=== PATIENT | female | born 1940 | race Caucasian/White ===

== ENCOUNTER 2025-01-13 05:45 | Inpatient (IN) | payer MEDICARE, OTHER, SELFPAY ==
--- NOTE | 2024-12-26 13:41 | CM ---
CM reviewed medical records. CM spoke with patient. Patient stated that she lives alone, but has a caregiver/friend who is able to assist patient with planning and care. Patient further stated that he sister will be staying with her post operatively
for assistance. Patient confirmed her has her DME equipment ordered and plans to pick it up from [facility].
Patient is active with her PCP and has medication coverage.
Patient has decided on [facility] and she has her appointment set up for 01/15.
CM will remain available as needed.
PLAN: home with family support and outpatient PT.
[2024-12-30 14:01] VITALS: BMI 29.9
[2024-12-30 14:14] LABS: Hematocrit 37.9 % (37.0-47.0); Hemoglobin 12.3 g/dL (12.0-16.0); Mean Corp Hgb Conc. 32.5 g/dL (33.0-37.0); Mean Corpuscular Volume 83.3 fL (81.0-99.0); Platelet Count 144 10^3/uL (130-400); Red Cell Dist. Width 14.7 % (11.5-14.5)
[2024-12-30 14:43] LABS: ALT (SGPT) 27 U/L (0-35); AST (SGOT) 29 U/L (14-36); Albumin 4.4 g/dl (3.5-5.0); Alkaline Phosphatase 113 U/L (38-126); Blood Urea Nitrogen 28 mg/dl (7-17); Calcium 10.4 mg/dl (8.4-10.2); Carbon Dioxide 34 mmol/L (22-30); Chloride 99 mmol/L (98-107); Estimated Creatinine Clearance 68 ml/min; Glucose 158 mg/dl (70-99); Potassium 5.1 mmol/L (3.5-5.1); Sodium 140 mmol/L (135-145); Total Protein 7.5 g/dl (6.3-8.2); eGFR > 60.00
[2024-12-30 15:58] VITALS: BMI 29.9
[2024-12-31 09:35] LABS: Glycohemoglobin (HgbA1c) 7.7 % (4.0-5.6)
[2025-01-13] VITALS (12 sets, daily range): BP systolic 101–124; BP diastolic 46–65; PULSE 80; O2SAT 93; BMI 29.9
[2025-01-13 06:29] LABS: Glucose - Point of Care 133 mg/dl (70-99)
[2025-01-13] MEDS: NORMOSOL-R/PLASMALYTE-A 1000 IV ×2 (06:42→10:59)
[2025-01-13] MEDS: TYLENOL 650 MG PO ×4 (06:43→20:33)
[2025-01-13] MEDS: CELEBREX 200 MG PO (06:43)
[2025-01-13 09:33] LABS: Glucose - Point of Care 130 mg/dl (70-99)
[2025-01-13] MEDS: ROXICODONE 5 MG PO (10:02)
[2025-01-13] MEDS: PROTONIX 40 MG PO (10:58)
[2025-01-13] MEDS: VITAMIN D3 (cholecalciferol) 50 MCG PO (10:58)
[2025-01-13] MEDS: CRESTOR 20 MG PO (10:58)
[2025-01-13] MEDS: ZOLOFT 200 MG PO (10:58)
[2025-01-13] MEDS: JANUVIA 100 MG PO (10:59)
[2025-01-13] MEDS: VITAMIN B-12 1000 MCG PO (10:59)
[2025-01-13] MEDS: ORETIC 12.5 MG PO (10:59)
[2025-01-13] MEDS: BUSPAR 5 MG PO ×2 (10:59→20:33)
[2025-01-13] MEDS: NOVOLOG FLEXPEN-MODERATE RESISTANCE SC (11:18)
--- NOTE | 2025-01-13 11:30 | W.PN.ORTHO ---
Today's Communication / Plan
-
D/c when clinically stable.
Assessment
.
Distal Motor Intact: Yes
Dressing:
Scant incisional bleeding noted. TXA ordered for later today.
Assessment:
R hip OA s/p Raisa alvarez/ Dr Chicas 01/13/25
- s/p remote L TKA and remote parital R TKA at an outside facility
DVT prophylaxis - ASA, b/l venous foot pumps
HTN - + parameters - monitor BP
PACs, asymptomatic - monitor on tele
Moderate aortic stenosis, asymptomatic - reduce hourly IVF rate to avoid fluid overload
JO, compliant with CPAP - monitor O2
- IS
- Continue CPAP HS
NIDDM, A1c 7.7 - monitor BS
- Diabetic carb controlled diet
- Resume home meds
- Add SSI AC, low dose Lantus HS during admission to accommodate for potential BS elevations d/t surgical stress, IV steroids in OR
- Would benefit from Cefadroxil upon d/c
GERD and Hiatal hernia - continue PPI therapy
Mild cognitive disorder - minimize opioids as able. Reportedly tolerated Oxy well previously
HLD
Mild aortic and mild regurgitation.
Diverticulitis, last episode approximately 5 years ago
Nephrolithiasis
Questionable TIA history
Multilevel degenerative disc disease with stenosis
Skin cancer, status post Mohs
Depression
Osteoporosis
Mild hypercalcemia
Plan
.
Surgery / Date: Raisa alvarez/ Dr Chicas 01/13/25
DVT Prophylaxis: Aspirin
Activity:
Out of bed.
PT/OT
Discharge Plan: Home w/ Outpatient PT
Subjective
.
.:
Patient resting comfortably in bed.
No current right hip pain reported.
Denies any new significant complaints.
Vital Signs and Labs
.
Vital Signs and Labs:
Lab Results
12/30/24 12:21
12/30/24 12:21
Temp Pulse Resp BP Pulse Ox
97.9 F 75 16 101/56 93
01/13/25 10:27 01/13/25 10:27 01/13/25 10:27 01/13/25 10:27 01/13/25 10:27
Physical Exam
-
HEENT: No pallor, cyanosis, or jaundice. Throat clear.
NECK: Supple. No JVD.
RESPIRATORY: Lungs clear to auscultation.
CVS: S1, S2 normal. RRR.�Murmur noted.
ABDOMEN: Soft, non-tender. No distension.
EXTREMITIES: Strength equal, no calf pain with palpation/dorsiflexion. Calves soft.
GRADUATE FELLOW: AOx3. No focal deficits. platform architect grossly intact
[2025-01-13] MEDS: ANCEF 5 IV ×2 (13:29→22:11)
[2025-01-13 17:00] LABS: Glucose - Point of Care 200 mg/dl (70-99)
[2025-01-13] MEDS: NOVOLOG FLEXPEN-MODERATE RESISTANCE 3 UNITS SC (17:10)
[2025-01-13] MEDS: GLUCOPHAGE 1000 MG PO (17:11)
[2025-01-13] MEDS: ASPIRIN 325 MG PO (17:11)
[2025-01-13] MEDS: SENOKOT 17.2 MG PO (20:33)
[2025-01-13] MEDS: COLACE 100 MG PO (20:33)
[2025-01-13] MEDS: CYKLOKAPRON 650 MG PO (20:33)
[2025-01-13] MEDS: TORADOL 10 MG IV (20:33)
[2025-01-13] MEDS: UROCIT-K 10 MEQ PO (20:33)
[2025-01-13] MEDS: BACTROBAN 2% OINTMENT 1 APPLIC NASAL (20:33)
[2025-01-13 20:50] LABS: Glucose - Point of Care 120 mg/dl (70-99)
[2025-01-13] MEDS: LANTUS 0.05 UNITS SC (22:12)
[2025-01-13] MEDS: NEURONTIN 200 MG PO (22:12)
[2025-01-13] MEDS: ROXICODONE 10 MG PO (22:25)
[2025-01-14] VITALS (7 sets, daily range): BP systolic 88–119; BP diastolic 44–61; PULSE 82–89; O2SAT 95
[2025-01-14] MEDS: TYLENOL PO ×2 (00:16→05:51)
--- NOTE | 2025-01-14 00:43 | PTCARENOTE ---
Pt reluctant to take narcotic for pain. Rates R hip/groin pain at 7/10. Educated on importance of pain control for mobility. Verbalizes little to no relief after receiving roxicodone 10 mg PO (refer to MAR). Assisted w/repostioning and ice pack
placed. Requires reminders to maintain hip precautions. Pt appears to be resting comfortably, with eyes closed, CPAP on and even respirations.
[2025-01-14 07:36] LABS: Glucose - Point of Care 147 mg/dl (70-99)
[2025-01-14] MEDS: NOVOLOG FLEXPEN-MODERATE RESISTANCE SC ×2 (07:53→11:50)
[2025-01-14] MEDS: UROCIT-K 10 MEQ PO ×2 (07:57→20:30)
[2025-01-14] MEDS: JANUVIA 100 MG PO (07:57)
[2025-01-14] MEDS: CYKLOKAPRON 650 MG PO ×2 (07:57→20:10)
[2025-01-14] MEDS: SENOKOT 17.2 MG PO ×2 (07:57→20:10)
[2025-01-14] MEDS: BUSPAR 5 MG PO ×2 (07:57→20:30)
[2025-01-14] MEDS: PROTONIX 40 MG PO (07:57)
[2025-01-14] MEDS: CELEBREX 200 MG PO (07:57)
[2025-01-14] MEDS: ASPIRIN 325 MG PO (07:58)
[2025-01-14] MEDS: COLACE 100 MG PO ×2 (07:58→20:10)
[2025-01-14] MEDS: CRESTOR 20 MG PO (07:58)
[2025-01-14] MEDS: ZOLOFT 200 MG PO (07:58)
[2025-01-14] MEDS: TYLENOL 650 MG PO ×4 (07:59→20:10)
[2025-01-14] MEDS: GLUCOPHAGE 1000 MG PO ×2 (07:59→17:27)
[2025-01-14] MEDS: ORETIC PO (07:59)
[2025-01-14] MEDS: VITAMIN B-12 1000 MCG PO (08:00)
[2025-01-14] MEDS: ROXICODONE 5 MG PO ×3 (08:00→21:53)
[2025-01-14] MEDS: BACTROBAN 2% OINTMENT 1 APPLIC NASAL ×2 (08:00→20:10)
[2025-01-14] MEDS: VITAMIN D3 (cholecalciferol) 50 MCG PO (08:00)
[2025-01-14] MEDS: LIDOCAINE 4% PATCH 2 PATCH TOPICAL (08:03)
--- NOTE | 2025-01-14 08:47 | W.PN.ORTHO ---
Today's Communication / Plan
-
Medically doing well.
Given functional limitations, make require SNF upon d/c.
Assessment
.
Distal Motor Intact: Yes
Dressing:
Quarter-sized area of old incisional bleeding towards inferior end of dressing.
Assessment:
R hip OA s/p R YOJANA w/ Dr Chicas 01/13/25
- s/p remote L TKA and remote parital R TKA at an outside facility
DVT prophylaxis - ASA, b/l venous foot pumps
Post-surgical pain - likely muscular as patient points to pain in right thigh - will add Lidocaine patches
- Consider muscle relaxant
- Continue Oxy q6hprn, Tylenol ATC, Celebrex, Gabapentin HS
- Did ute patient on importance of staying ahead of pain w/ Oxycodone. Pt reportedly hesitant overnight taking
HTN - + parameters - BPs soft but overall stable per POA's reports
PACs, asymptomatic - maintaining NSR on tele
Moderate aortic stenosis, asymptomatic - reduced hourly IVF rate to avoid fluid overload
- No sx of fluid overload POD 1
JO, compliant with CPAP - O2 stable on RA
- IS
- Continue CPAP HS
NIDDM, A1c 7.7 - BS readings initially elevated but improved w/ measures below
- Diabetic carb controlled diet
- Resumed home meds
- Added SSI AC, low dose Lantus HS during admission to accommodate for potential BS elevations d/t surgical stress, IV steroids in OR
- Would benefit from Cefadroxil upon d/c
GERD and Hiatal hernia - continue PPI therapy
Mild cognitive disorder - minimize opioids as able. Tolerating Oxycodone
HLD
Mild aortic and mild regurgitation
Diverticulitis, last episode approximately 5 years ago
Nephrolithiasis
Questionable TIA history
Multilevel degenerative disc disease with stenosis
Skin cancer, status post Mohs
Depression
Osteoporosis
Mild hypercalcemia
Plan
.
Surgery / Date: Raisa alvarez/ Dr Chicas 01/13/25
DVT Prophylaxis: Aspirin
Activity:
Out of bed.
PT/OT
Discharge Plan: SNF (home PT/OT and VN vs )
Subjective
.
.:
Patient examined resting in bed. Sister and POA present.
Complaints of R hip/thigh pain overnight, likely 2* lapse in Oxycodone dosing.
Denies any other new significant complaints.
Eager for potential d/c today.
Vital Signs and Labs
.
Vital Signs and Labs:
Lab Results
12/30/24 12:21
12/30/24 12:21
Temp Pulse Resp BP Pulse Ox
98 F 82 16 110/60 98
01/14/25 07:35 01/14/25 07:35 01/14/25 07:35 01/14/25 07:35 01/14/25 07:35
Non-invasive Hgb result: 11.0
Physical Exam
-
HEENT: No pallor, cyanosis, or jaundice. Throat clear.
NECK: Supple. No JVD.
RESPIRATORY: Lungs clear to auscultation.
CVS: S1, S2 normal. RRR.�+ Murmur.
ABDOMEN: Soft, non-tender. No distension.
EXTREMITIES: Strength equal, no calf pain with palpation/dorsiflexion. Calves soft.
SPANISH MOSS PICKER: AOx3. Mild cognitive deficits at baseline. child care assistant grossly intact
--- NOTE | 2025-01-14 08:59 | W.DS.TRANS ---
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
-
Discharge Instructions:
Discharge Diagnosis/Procedures R hip OA s/p R YOJANA w/ Dr Chicas 01/13/25
Diet Diabetic, Carb Controlled
Additional Diets Adequate hydration, minimize opioids, and wear
TEDs stockings to prevent low blood pressure/
dizziness.
Activity As tolerated,With Walker
Driving Restrictions Not until seen by your Dr
Bathing Restrictions OK to Shower
Other Services OT,PT
Wound Care Dressing to be removed 1 week post-surgery.
Dean to be removed at 2 week follow-up with
surgeon's office.
Instructions:
Stand-Alone Forms: Total Hip/Knee Replacement D/C
Changes to Home Medications: Yes
Discharge Medications:
DC Medications w/original date entered in [facility]
buspirone 5 mg tablet 5 mg PO BID Mental Health/Anxiety 12/27/24
cholecalciferol (vitamin D3) 50 mcg (2,000 unit) capsule (Vitamin D3) 50 mcg PO DAILY Supplement 12/27/24
coQ10 (ubiquinol) 200 mg capsule 400 mg PO DAILY Supplement 12/27/24
Held on 01/13/25. Instructions: Resume on 01/20/25.
mecobalamin (vitamin B12) 1,000 mcg chewable tablet 1,000 mcg PO DAILY Supplement 12/27/24
metformin 1,000 mg tablet 1,000 mg PO BID Diabetes 12/27/24
multivitamin 1 tab PO DAILY Supplement 12/27/24
omeprazole 20 mg capsule,delayed release 20 mg PO DAILY Gastrointestinal Issue 12/27/24
potassium citrate 10 mEq (1,080 mg) tablet,extended release 10 meq PO BID Supplement 12/27/24
rosuvastatin 20 mg tablet 20 mg PO DAILY High Cholesterol 12/27/24
sertraline 100 mg tablet 100 mg PO BID Mental Health/Anxiety 12/27/24
sitagliptin phosphate 100 mg tablet (Januvia) 100 mg PO DAILY Diabetes 12/27/24
zinc acetate 50 mg (zinc) capsule 50 mg PO DAILY Supplement 12/27/24
mupirocin 2 % topical ointment 1 applic intranasal BID #1 tube 12/30/24
Saccharomyces boulardii 250 mg capsule (Florastor) 250 mg PO BID #14 caps 01/13/25
acetaminophen 500 mg tablet 1,000 mg (2 x 500 mg) PO Q6H pain #60 tabs 01/13/25
aspirin 325 mg tablet 325 mg PO DAILY #30 tabs 01/13/25
cefadroxil 500 mg capsule 500 mg PO BID #14 caps 01/13/25
celecoxib 200 mg capsule 200 mg PO DAILY #14 caps 01/13/25
docusate sodium 100 mg capsule 100 mg PO BID #30 caps 01/13/25
hydrochlorothiazide 12.5 mg capsule 12.5 mg PO DAILY #1 cap 01/13/25
ondansetron HCl 4 mg tablet 4 mg PO Q6H PRN nausea and vomiting #30 tabs 01/13/25
oxycodone 5 mg tablet 5 - 10 mg (1 - 2 x 5 mg) PO Q6H PRN moderate-severe pain #30 tabs 01/13/25
sennosides 8.6 mg tablet (Adele-cristine) 17.2 mg (2 x 8.6 mg) PO BID #30 tabs 01/13/25
gabapentin 300 mg capsule 300 mg PO HS neuropathic pain/sleep #10 caps 01/14/25
lidocaine 4 % topical patch 2 patch topical DAILY #30 ea 01/14/25
Home Medication Changes
Saccharomyces boulardii 250 mg capsule (Florastor) 250 mg PO BID #14 caps 01/13/25
acetaminophen 500 mg tablet 1,000 mg (2 x 500 mg) PO Q6H pain #60 tabs 01/13/25
aspirin 325 mg tablet 325 mg PO DAILY #30 tabs 01/13/25
cefadroxil 500 mg capsule 500 mg PO BID #14 caps 01/13/25
celecoxib 200 mg capsule 200 mg PO DAILY #14 caps 01/13/25
docusate sodium 100 mg capsule 100 mg PO BID #30 caps 01/13/25
ondansetron HCl 4 mg tablet 4 mg PO Q6H PRN nausea and vomiting #30 tabs 01/13/25
oxycodone 5 mg tablet 5 - 10 mg (1 - 2 x 5 mg) PO Q6H PRN moderate-severe pain #30 tabs 01/13/25
sennosides 8.6 mg tablet (Adele-cristine) 17.2 mg (2 x 8.6 mg) PO BID #30 tabs 01/13/25
gabapentin 300 mg capsule 300 mg PO HS neuropathic pain/sleep #10 caps 01/14/25
lidocaine 4 % topical patch 2 patch topical DAILY #30 ea 01/14/25
Pending Results: No
[2025-01-14 11:49] LABS: Glucose - Point of Care 141 mg/dl (70-99)
--- NOTE | 2025-01-14 15:01 | CM ---
Addendum entered by Inge Campuzano RN 01/16/25 09:39:
Cm met with patient and friend in room. Patient remains agreeable to discharge to SNF.
PLAN: SNF.
Addendum entered by Inge Campuzano RN 01/15/25 09:52:
CM spoke with Babs at the [facility] [place]. She confirmed bed availablity for 01/16.
[facility] – [place]
REPORT
[phone]

CM confirmed that all beds are private as per patient's request.
Addendum entered by Inge Campuzano RN 01/15/25 09:18:
Family and patient are agreeable to the [facility] [place].
Original Note:
CM discuss placement with patient and family Patient is agreeable to SNF.
The [facility] [place] is able to accept patient. CM will confirm family's choice.
[2025-01-14 16:57] LABS: Glucose - Point of Care 185 mg/dl (70-99)
[2025-01-14] MEDS: NOVOLOG FLEXPEN-MODERATE RESISTANCE 1 UNITS SC (17:28)
[2025-01-14] MEDS: KEFLEX 500 MG PO (20:10)
[2025-01-14] MEDS: REMOVE LIDOCAINE PATCH 2 PATCH REMOVE (20:20)
[2025-01-14] MEDS: NEURONTIN 300 MG PO (21:35)
[2025-01-14] MEDS: LANTUS 0.05 UNITS SC (21:45)
[2025-01-14 21:47] LABS: Glucose - Point of Care 278 mg/dl (70-99)
[2025-01-15] VITALS (8 sets, daily range): BP systolic 97–110; BP diastolic 48–68; PULSE 88–91; O2SAT 97–98
[2025-01-15] MEDS: TYLENOL 650 MG PO ×7 (00:20→23:30)
[2025-01-15 07:50] LABS: Glucose - Point of Care 170 mg/dl (70-99)
[2025-01-15] MEDS: NOVOLOG FLEXPEN-MODERATE RESISTANCE 1 UNITS SC (08:01)
[2025-01-15] MEDS: KEFLEX 500 MG PO ×2 (08:01→20:50)
[2025-01-15] MEDS: VITAMIN B-12 1000 MCG PO (08:02)
[2025-01-15] MEDS: ASPIRIN 325 MG PO (08:02)
[2025-01-15] MEDS: JANUVIA 100 MG PO (08:02)
[2025-01-15] MEDS: ZOLOFT 200 MG PO (08:02)
[2025-01-15] MEDS: COLACE 100 MG PO ×2 (08:02→20:54)
[2025-01-15] MEDS: GLUCOPHAGE 1000 MG PO ×2 (08:02→17:03)
[2025-01-15] MEDS: VITAMIN D3 (cholecalciferol) 50 MCG PO (08:02)
[2025-01-15] MEDS: CELEBREX 200 MG PO (08:02)
[2025-01-15] MEDS: CRESTOR 20 MG PO (08:02)
[2025-01-15] MEDS: PROTONIX 40 MG PO (08:02)
[2025-01-15] MEDS: SENOKOT 17.2 MG PO ×2 (08:03→20:50)
[2025-01-15] MEDS: LIDOCAINE 4% PATCH 2 PATCH TOPICAL (08:03)
[2025-01-15] MEDS: ORETIC PO (08:03)
[2025-01-15] MEDS: BUSPAR 5 MG PO ×2 (08:04→20:55)
[2025-01-15] MEDS: UROCIT-K 10 MEQ PO ×2 (08:04→20:50)
--- NOTE | 2025-01-15 08:55 | W.PN.ORTHO ---
Today's Communication / Plan
-
Continue to monitor VS, BS readings.
D/c when clinically stable.
Assessment
.
Distal Motor Intact: Yes
Dressing:
Quarter-sized area of old incisional bleeding towards inferior end of dressing - unchanged since yesterday.
Assessment:
R hip OA s/p R YOJANA w/ Dr Chicas 01/13/25
- s/p remote L TKA and remote parital R TKA at an outside facility
DVT prophylaxis - ASA, b/l venous foot pumps
Post-surgical pain - likely muscular as patient pointed to pain in right thigh - did add Lidocaine patches
- Consider muscle relaxant
- Continue Oxy q6hprn, Tylenol ATC, Celebrex, Gabapentin HS
- Did [place] patient on importance of staying ahead of pain w/ Oxycodone. Pt reportedly hesitant taking throughout admission
- Pain better tolerated w/ measures above by POD 2
HTN - + parameters - BPs soft but overall stable per POA's reports
PACs, asymptomatic - rhythm stable on tele
Moderate aortic stenosis, asymptomatic - reduced hourly IVF rate to avoid fluid overload
- No sx of fluid overload post-op
JO, compliant with CPAP - O2 stable on RA
- IS
- Continue CPAP HS
NIDDM, A1c 7.7 - BS readings initially elevated but improving w/ measures below
- Diabetic carb controlled diet
- Resumed home meds
- Added SSI AC, low dose Lantus HS during admission to accommodate for potential BS elevations d/t surgical stress, IV steroids in OR
- Would benefit from Cefadroxil upon d/c
GERD and Hiatal hernia - continue PPI therapy
Mild cognitive disorder - minimize opioids as able. Tolerating Oxycodone
HLD
Mild aortic and mild regurgitation
Diverticulitis, last episode approximately 5 years ago
Nephrolithiasis
Questionable TIA history
Multilevel degenerative disc disease with stenosis
Skin cancer, status post Mohs
Depression
Osteoporosis
Mild hypercalcemia
Plan
.
Surgery / Date: R YOJANA w/ Dr Chicas 01/13/25
DVT Prophylaxis: Aspirin
Activity:
Out of bed.
PT/OT
Discharge Plan: SNF
Subjective
.
.:
Patient resting comfortably in bed.
R hip/thigh pain tolerable in comparison to yesterday.
Denies any acute complaints.
PT/OT recommending SNF d/t current functional status.
Vital Signs and Labs
.
Vital Signs and Labs:
Lab Results
12/30/24 12:21
12/30/24 12:21
Temp Pulse Resp BP Pulse Ox
98.2 F 90 16 110/53 97
01/15/25 07:40 01/15/25 07:40 01/15/25 07:40 01/15/25 07:40 01/15/25 07:40
Non-invasive Hgb result: 10.1
Physical Exam
-
HEENT: No pallor, cyanosis, or jaundice. Throat clear.
NECK: Supple. No JVD.
RESPIRATORY: Lungs clear to auscultation.
CVS: S1, S2 normal. RRR.�Murmur noted.
ABDOMEN: Soft, non-tender. No distension.
EXTREMITIES: Strength equal, no calf pain with palpation/dorsiflexion. Calves soft.
DISPENSING AND MEASURING OPTICIAN: AOx3. Mild cognitive deficits at baseline. painter airbrush grossly intact
[2025-01-15] MEDS: ROXICODONE 5 MG PO (09:15)
[2025-01-15 12:09] LABS: Glucose - Point of Care 139 mg/dl (70-99)
[2025-01-15] MEDS: NOVOLOG FLEXPEN-MODERATE RESISTANCE SC (12:58)
[2025-01-15 16:35] LABS: Glucose - Point of Care 240 mg/dl (70-99)
[2025-01-15] MEDS: NOVOLOG FLEXPEN-MODERATE RESISTANCE 3 UNITS SC (16:56)
[2025-01-15] MEDS: REMOVE LIDOCAINE PATCH 2 PATCH REMOVE (20:50)
[2025-01-15] MEDS: NEURONTIN 300 MG PO (21:04)
[2025-01-15 21:14] LABS: Glucose - Point of Care 161 mg/dl (70-99)
[2025-01-15] MEDS: LANTUS 0.05 UNITS SC (21:40)
[2025-01-16] MEDS: TYLENOL 650 MG PO ×3 (03:00→12:17)
[2025-01-16 03:46] VITALS: BP 131/54
[2025-01-16 07:40] VITALS: BP 114/56
[2025-01-16 08:14] LABS: Glucose - Point of Care 148 mg/dl (70-99)
[2025-01-16] MEDS: UROCIT-K 10 MEQ PO (09:14)
[2025-01-16] MEDS: BUSPAR 5 MG PO (09:15)
[2025-01-16] MEDS: CELEBREX 200 MG PO (09:15)
[2025-01-16] MEDS: VITAMIN D3 (cholecalciferol) 50 MCG PO (09:15)
[2025-01-16] MEDS: VITAMIN B-12 1000 MCG PO (09:15)
[2025-01-16] MEDS: JANUVIA 100 MG PO (09:15)
[2025-01-16] MEDS: KEFLEX 500 MG PO (09:15)
[2025-01-16] MEDS: PROTONIX 40 MG PO (09:15)
[2025-01-16] MEDS: ZOLOFT 200 MG PO (09:16)
[2025-01-16] MEDS: GLUCOPHAGE 1000 MG PO (09:16)
[2025-01-16] MEDS: CRESTOR 20 MG PO (09:16)
[2025-01-16] MEDS: ASPIRIN 325 MG PO (09:16)
[2025-01-16] MEDS: COLACE 100 MG PO (09:16)
--- NOTE | 2025-01-16 09:16 | W.PN.ORTHO ---
Today's Communication / Plan
-
D/c today since clinically stable, bed available at SNF.
Assessment
.
Distal Motor Intact: Yes
Dressing:
Quarter-sized area of old incisional bleeding towards inferior end of dressing - unchanged since yesterday.
Assessment:
R hip OA s/p R YOJANA w/ Dr Chicas 01/13/25
- s/p remote L TKA and remote parital R TKA at an outside facility
DVT prophylaxis - ASA, b/l venous foot pumps
Post-surgical pain - likely muscular as patient pointed to pain in right thigh - did add Lidocaine patches
- Consider muscle relaxant
- Continue Oxy q6hprn, Tylenol ATC, Celebrex, Gabapentin HS
- Did [place] patient on importance of staying ahead of pain w/ Oxycodone. Pt reportedly hesitant taking throughout admission
- Pain better tolerated w/ measures above by POD 2
HTN - + parameters - BPs soft but overall stable per POA's reports
PACs, asymptomatic - rhythm stable on tele
Moderate aortic stenosis, asymptomatic - reduced hourly IVF rate to avoid fluid overload
- No sx of fluid overload post-op
JO, compliant with CPAP - O2 stable on RA
- IS
- Continue CPAP HS
NIDDM, A1c 7.7 - BS readings initially elevated but improving w/ measures below
- Diabetic carb controlled diet
- Resumed home meds
- Added SSI AC, low dose Lantus HS during admission to accommodate for potential BS elevations d/t surgical stress, IV steroids in OR
- Would benefit from Cefadroxil upon d/c
GERD and Hiatal hernia - continue PPI therapy
Mild cognitive disorder - minimize opioids as able. Tolerating Oxycodone prn
HLD
Mild aortic and mild regurgitation
Diverticulitis, last episode approximately 5 years ago
Nephrolithiasis
Questionable TIA history
Multilevel degenerative disc disease with stenosis
Skin cancer, status post Mohs
Depression
Osteoporosis
Mild hypercalcemia
Plan
.
Surgery / Date: R YOJANA w/ Dr Chicas 01/13/25
DVT Prophylaxis: Aspirin
Activity:
Out of bed.
PT/OT
Discharge Plan: SNF
Subjective
.
.:
Patient resting comfortably in her chair.
R hip pain well controlled w/ minimal pain meds. Last Oxycodone yesterday.
Denies any new acute complaints.
Eager for potential d/c to SNF today.
Vital Signs and Labs
.
Vital Signs and Labs:
Lab Results
12/30/24 12:21
12/30/24 12:21
Temp Pulse Resp BP Pulse Ox
98.3 F 87 16 114/56 95
01/16/25 07:40 01/16/25 07:40 01/16/25 07:40 01/16/25 07:40 01/16/25 07:40
Non-invasive Hgb result: 10.1
Physical Exam
-
HEENT: No pallor, cyanosis, or jaundice. Throat clear.
NECK: Supple. No JVD.
RESPIRATORY: Lungs clear to auscultation.
CVS: S1, S2 normal. RRR.�Murmur noted.
ABDOMEN: Soft, non-tender. No distension.
EXTREMITIES: Strength equal, no calf pain with palpation/dorsiflexion. Calves soft.
LOCOMOTIVE CRANE OPERATOR: AOx3. No focal deficits. chemical recovery operator grossly intact
[2025-01-16] MEDS: SENOKOT PO (09:17)
[2025-01-16] MEDS: ORETIC PO (09:17)
[2025-01-16] MEDS: LIDOCAINE 4% PATCH 2 PATCH TOPICAL (09:17)
[2025-01-16] MEDS: NOVOLOG FLEXPEN-MODERATE RESISTANCE SC ×2 (09:18→12:46)
[2025-01-16 11:35] VITALS: BP 124/61
[2025-01-16 11:35] LABS: Glucose - Point of Care 131 mg/dl (70-99)
== END 2025-01-16 14:22 | DRG 470 ==
LOC: 2 SOUTH 05:45
PROVIDERS: ADMITTING PHYSICIAN Specialist; FAMILY PHYSICIAN Internal Medicine
PROC: 0SR904A Replacement of Right Hip Joint with Ceramic on Polyethylene Synthetic Substitute, Uncemented, Open Approach (ICD-10-PCS; 2025-01-13)
DX: M16.11 Unilateral primary osteoarthritis, right hip (principal); I10 Essential (primary) hypertension; E78.5 Hyperlipidemia, unspecified; I49.1 Atrial premature depolarization; I08.0 Rheumatic disorders of both mitral and aortic valves; G47.33 Obstructive sleep apnea (adult) (pediatric); E11.9 Type 2 diabetes mellitus without complications; K21.9 Gastro-esophageal reflux disease without esophagitis; K44.9 Diaphragmatic hernia without obstruction or gangrene; N20.0 Calculus of kidney; G31.84 Mild cognitive impairment of uncertain or unknown etiology; M51.369 Other intervertebral disc degeneration, lumbar region without mention of lumbar back pain or lower extremity pain; F32.A Depression, unspecified; M81.0 Age-related osteoporosis without current pathological fracture; E83.52 Hypercalcemia; Z96.653 Presence of artificial knee joint, bilateral; F09 Unspecified mental disorder due to known physiological condition; K57.30 Diverticulosis of large intestine without perforation or abscess without bleeding; Z79.899 Other long term (current) drug therapy; Z85.828 Personal history of other malignant neoplasm of skin; Z86.73 Personal history of transient ischemic attack (TIA), and cerebral infarction without residual deficits
CPT/HCPCS: 36415; 73502; 80053; 82962; 83036; 85027; 87070; 93005; 97110; 97116; 97162; 97167; 97530; 97535; C1713; C1776